=== PATIENT | male | born 2000 | race Caucasian/White ===

== ENCOUNTER 2021-09-15 13:21 | Emergency (ER) | payer OTHER, SELFPAY ==
--- NOTE | 2021-09-15 14:49 | ER ---
Nurse's Notes [facility] Name: Moisés Lamb Jr Age: 20 yrs Sex: Male : 2000 Arrival Date: 09/15/2021 Time: 13:24 Bed 12 Private MD: Diagnosis: Dental Pain;Mandibular Swelling Presentation: 09/15 13:46 Chief complaint: Patient states: left side facial swelling since yesterday morning. 3 Coronavirus screen: Vaccine status: Patient reports being unvaccinated. Ebola Screen: No symptoms or risks identified at this time. Initial Sepsis Screen: Does the patient meet any 2 criteria? No. Patient's initial sepsis screen is negative. Does the patient have a suspected source of infection? No. Patient's initial sepsis screen is negative. Risk Assessment: Do you want to hurt yourself or someone else? Patient reports no desire to harm self or others. Onset of symptoms was September 14, 2021. 13:46 Method Of Arrival: Ambulatory [facility] 13:46 Acuity: RENE 4 eh3 Triage Assessment: 13:47 General: Appears in no apparent distress. comfortable, Behavior is calm, cooperative, eh3 appropriate for age. Pain: Complains of pain in left cheek and left jaw Pain does not radiate. Pain currently is 3 out of 10 on a pain scale. Quality of pain is described as pressure, Pain began 1 day ago. Is intermittent. Neuro: Level of Consciousness is awake, alert, obeys commands, Oriented to person, place, time, situation. Cardiovascular: Capillary refill < 3 seconds Patient's skin is warm and dry. Respiratory: Airway is patent Respiratory effort is even, unlabored. Historical: - Allergies: 13:47 No Known Allergies; eh3 - Home Meds: 13:47 None [Active]; eh3 - PMHx: 13:47 None; eh3 - PSHx: 13:47 None; eh3 - Immunization history:: Adult Immunizations not up to date. - Social history:: Smoking status: Patient denies any tobacco usage or history of. Patient/guardian denies using alcohol, street drugs. Screenin:08 Abuse screen: Denies threats or abuse. Denies injuries from another. Nutritional ss screening: No deficits noted. Tuberculosis screening: Never had TB. Fall Risk None identified. Assessment: 15:08 General: Appears in no apparent distress. comfortable, Behavior is calm, cooperative. ss Pain: Complains of pain in left jaw and left cheek Pain currently is 3 out of 10 on a pain scale. Quality of pain is described as tender, Is continuous. Neuro: Level of Consciousness is awake, alert, obeys commands, Oriented to person, place, time, situation. Cardiovascular: Capillary refill < 3 seconds is brisk in bilateral fingers. Respiratory: Airway is patent Respiratory effort is even, unlabored, Respiratory pattern is regular, symmetrical. Derm: Skin is intact, is healthy with good turgor, Skin is pink, warm \T\ dry. normal. Musculoskeletal: Swelling present in left jaw. Vital Signs: 13:46 BP 132 / 92; Pulse 90; Resp 18; Temp 98.0(TE); Pulse Ox 97% on R/A; Weight 122.47 kg; eh3 Height 5 ft. 11 in. (180.34 cm); Pain 3/10; 13:46 Body Mass Index 37.66 (122.47 kg, 180.34 cm) eh3 ED Course: 13:24 Patient arrived in ED. rg4 13:47 Triage completed. eh3 13:47 Arm band placed on right wrist. eh3 14:21 Jerrod Hurtado MD is Attending Physician. kdr 14:46 Simon Garvey DDS is Referral Physician. kdr 14:54 Ivonne Evangelista, DAVE is Primary Nurse. ss 15:08 Patient has correct armband on for positive identification. Bed in low position. ss 15:08 No provider procedures requiring assistance completed. Patient did not have IV access ss during this emergency room visit. Administered Medications: 15:06 Drug: FlagyL 500 mg Route: PO; ss 15:07 Follow up: Response: Medication administered at discharge. ss 15:07 Not Given (Other Intervention Used): Amoxicillin 875 mg PO once ss 15:07 Drug: Augmentin (Amoxicillin-Clavulanate) 875 mg Route: PO; ss 15:07 Follow up: Response: Medication administered at discharge. ss Medication: 15:08 VIS not applicable for this client. ss Outcome: 14:48 Discharge ordered by . kdr 15:08 Discharged to home ambulatory, with family. ss 15:08 Condition: good 15:08 Discharge instructions given to patient, family, Instructed on discharge instructions, follow up and referral plans. medication usage, Demonstrated understanding of instructions, follow-up care, medications, Prescriptions given X 2. 15:10 Patient left the ED. Signatures: Jerrod Hurtado MD MD [facility] Ivonne Evangelista RN RN Fartun Marie 4 Ele Michel [facility] Corrections: (The following items were deleted from the chart) 13:47 13:37 Chief complaint: 3 [facility] 13:47 13:38 Chief complaint: 3 [facility]
--- NOTE | 2021-09-15 14:49 | EDPHYS ---
Physician Documentation [facility] Name: Moisés Lamb Jr Age: 20 yrs Sex: Male : 2000 Arrival Date: 09/15/2021 Time: 13:24 Bed 12 Private MD: ED Physician Jerrod Hurtado Historical: - Allergies: 09/15 13:47 No Known Allergies; eh3 - Home Meds: 13:47 None [Active]; eh3 - PMHx: 13:47 None; eh3 - PSHx: 13:47 None; eh3 - Immunization history:: Adult Immunizations not up to date. - Social history:: Smoking status: Patient denies any tobacco usage or history of. Patient/guardian denies using alcohol, street drugs. Vital Signs: 13:46 BP 132 / 92; Pulse 90; Resp 18; Temp 98.0(TE); Pulse Ox 97% on R/A; Weight 122.47 kg; eh3 Height 5 ft. 11 in. (180.34 cm); Pain 3/10; 13:46 Body Mass Index 37.66 (122.47 kg, 180.34 cm) eh3 MDM: 14:48 Patient medically screened. kdr Administered Medications: 15:06 Drug: FlagyL 500 mg Route: PO; ss 15:07 Follow up: Response: Medication administered at discharge. ss 15:07 Not Given (Other Intervention Used): Amoxicillin 875 mg PO once ss 15:07 Drug: Augmentin (Amoxicillin-Clavulanate) 875 mg Route: PO; ss 15:07 Follow up: Response: Medication administered at discharge. Disposition Summary: 09/15/21 14:48 Discharge Ordered Location: Home kdr Problem: new kdr Symptoms: have improved kdr Condition: Stable kdr Diagnosis - Dental Pain kdr - Mandibular Swelling kdr Followup: kdr - With: Private Physician - When: 2 - 3 days - Reason: If symptoms return, Further diagnostic work-up, Recheck today's complaints, Continuance of care, Re-evaluation by your physician Followup: kdr - With: Simon Garvey DDS - When: 2 - 3 days - Reason: If symptoms return, Further diagnostic work-up, Recheck today's complaints, Continuance of care, Re-evaluation by your physician Discharge Instructions: - Discharge Summary Sheet kdr - Dental Abscess, [id number] kdr - Dental Caries, Adult, [id number] kdr Forms: - Medication Reconciliation Form kdr - Thank You Letter kdr - Antibiotic Education kdr Prescriptions: - Amoxicillin 875 mg Oral Tablet - take 1 tablet by ORAL route every 12 hours for 10 days; 20 tablet; Refills: 0, kdr Product Selection Permitted - Flagyl 500 mg Oral Tablet - take 1 tablet by ORAL route every 6 hours for 10 days; 40 tablet; Refills: 0, kdr Product Selection Permitted Signatures: Jerrod Hurtado MD MD kdr Ivonne Evnagelista RN RN Ele Michel [facility]
[2021-09-15] MEDS ORDERED: metroNIDAZOLE 500 MG TABLET ONE (15:04)
[2021-09-15] MEDS ORDERED: AMOX/K CLAV 875 MG TAB ONE (15:04)
[2021-09-15 15:28] VITALS: BP 132/92; TEMP 98; O2SAT 97
== END 2021-09-15 15:10 | disposition home or self-care (01) ==
LOC: ER 13:21
DX: K08.89 Other specified disorders of teeth and supporting structures (principal); R22.9 Localized swelling, mass and lump, unspecified
CPT/HCPCS: 99283